=== PATIENT | female | born 1990 | race Caucasian/White ===

== ENCOUNTER 2016-03-21 12:30 | Emergency (ER) | payer MEDICAID ==
[~2016-03-21] VITALS: Ht 170.2 cm; Wt 106.8 kg
[~2016-03-21 12:30] MED LIST: FES300 PO; PREN1TAB47 PO; [UNRECOGNIZED DRUG - CODE] PO
[2016-03-21 12:33] VITALS: BP 120/70; PULSE 110; RESP 15; O2SAT 100
--- NOTE | 2016-03-21 12:53 | ED.REPORT ---
HPI-General Illness Date of Service Mar 21, 2016 ED Provider: Narendra Vásquez MD Pt is a healthy 26 year old female who is roughly 6 weeks who presents to the ED with concerns for abdominal cramping that started earlier today. She reports that she has been having increased social stressors, and believes that this is a contributing factor. 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 She reports no vaginal bleeding, or abnormal discharge. Pt reports no other medical concerns at this time. Nursing Notes Stated Complaint: ABDOMINAL PAIN Chief Complaint: & Delivery Nursing Notes Reviewed: Yes Allergies: Coded Allergies: codeine (Verified Allergy, Intermediate, Hives, 03/21/16) Scheduled CHOLECALCIFEROL-Expunged Drug, Do Not Renew! (VITAMIN D3-Expunged Drug, Do Not Renew!) 1,000 Unit Tablet 1,000 UNIT PO DAILY Ferrous Sulfate-Expunged Drug, Do Not Renew! (Feosol-Expunged Drug, Do Not Renew !) 325 Mg Tablet 325 MG PO DAILY Vit/Fe Fumarate/Fa-Expunged Drug, Do (-Expunged Drug, Do Not Renew!) 1 Tab Tablet 1 TAB PO DAILY General Time Seen by MD: 12:52 Chief Complaint Abdominal pain Hx Obtained From: Patient, Spouse Arrived By: Walk-in Sudden in Onset?: Yes Onset Occurred: Just prior to arrival Symptom Duration: Since onset Location: : Abdomen Quality: Cramping, Painful Severity: Current: Mild Severity: Maximum: Moderate Similar Sx Previous: Yes Past Medical History Past Medical History h/o Chlamyida in 2011, treated Past Surgical History none reported Family History noncontributory Social History "Very occasional" smoker-uses vape Alcohol Use: Denies alcohol use Drug Use: THC Ambulatory Status Independent Review of Systems Full Review of Systems Constitutional: Denies: Chills, Fever, Malaise, Weakness - generalized Respiratory: Denies: Non-productive cough, Shortness of breath, Wheezing GI: Reports: Abdominal pain, Denies: Constipation, Diarrhea, Nausea, Vomiting Female: Denies: Dysuria, Flank pain, Urinary frequency, Urinary urgency Musculoskeletal: Denies: Back pain Skin: Denies Diaphoresis Neurologic: Denies: Change LOC, Headache, Syncope Complete sys rev & neg: except as marked. Physical Exam Vital Signs Vital Signs Date Time Temp Pulse Resp B/P Pulse Ox O2 Delivery O2 Flow Rate FiO2 03/21/16 15:53 37.0 99 16 116/77 100 Room Air 03/21/16 12:33 36.8 110 15 120/70 100 Room Air Initial VS: Reviewed Head / Eyes: Atraumatic, Normocephalic, PERRL ENT: Mucous membranes moist, Conjunctiva normal, No scleral icterus Neck: Supple, Non-tender, Full range of motion Respiratory: Breath sounds normal, Clear to auscultation, No respiratory distress Cardiovascular: Regular rate & rhythm, Heart sounds normal, Intact distal pulses Skin: Warm, Dry, No cyanosis Neurologic: Alert, Oriented, Nonfocal Psychiatric: Mood/affect normal, Behavior normal, Normal thought content General/Constitutional: Awake, Alert, No acute distress, Well appearing, Well developed, Well nourished, Cooperative Behavior: Positive: Anxious, Tearful Abdomen: Soft, No guarding, No rebound Mild tenderness to the lower abdomen Female Genitourinary: Boom Supervisor present, External genitalia NL, No bleeding, No discharge Closed cervix Interpretation & Diagnostics Lab Results Interpretation Result Diagram: 03/21/16 1345 03/21/16 1345 Test 03/21/16 13:33 03/21/16 13:45 Hold Urine Received (Received) White Blood Count 13.4th/mm3 (3.8-10.1) Red Blood Count 5.08mil/mm3 (3.90-5.20) Hemoglobin 13.5g/dL (12.0-15.6) Hematocrit 41.5% (35.0-46.0) Mean Corpuscular Volume 81.7fL (81-100) Mean Corpuscular Hemoglobin 26.6pg (27.0-35.0) Mean Corpuscular Hemoglobin Concent 32.5% (32.0-37.0) Red Cell Distribution Width 14.1% (12.3-15.4) Platelet Count 268bil/L (150-400) Neutrophils (%) (Auto) 80.4% (40-74) Lymphocytes (%) (Auto) 15.5% (14-46) Monocytes (%) (Auto) 3.6% (4-12) Eosinophils (%) (Auto) 0.1% (0-5) Basophils (%) (Auto) 0.1% (0-3) Sodium Level 136mEq/L (134-144) Potassium Level 4.1mEq/L (3.5-5.2) Chloride Level 100mEq/L (97-108) Carbon Dioxide Level 20mmol/L (18-29) Blood Urea Nitrogen 7mg/dL (6-20) Creatinine 0.56mg/dL (0.57-1.00) Estimat Glomerular Filtration Rate 187mL/min (>59) Glucose Level 82mg/dL (60-99) Calcium Level 9.2mg/dL (8.5-10.1) Total Bilirubin 0.5mg/dL (0.0-1.2) Aspartate Amino Transf (AST/SGOT) 13U/L (0-50) Alanine Aminotransferase (ALT/SGPT) 19U/L (0-32) Alkaline Phosphatase 75U/L (25-150) Total Protein 7.6g/dL (6.4-8.4) Albumin 4.1g/dL (3.4-5.0) HCG Beta Subunit 15013uSN/mL Lab Results Interpretation: Bedside US shows a viable 8.5 week . Several mobile gallstones are also seen. US Focused OB IMPRESSION: 1. Early intrauterine with ultrasound estimated age of 8 weeks 5 days corresponding to ultrasound BRUCE of 10/26/2016. 2. Small bilateral maternal ovarian follicles. 3. Maternal cholelithiasis. Dictated by: Ernestine Mckeon MD, PhD on 03/21/2016 at 14:57 Exam Performed by: Allied health pract Exam Type: Diagnostic Re-Eval/Medical Decision Med Decision/Clinical Course The patient is a 26-year-old G 10 P1 with a history of multiple previous miscarriages currently at approximately 6-8 weeks by LMP who presents to the emergency department complaining of lower abdominal cramping. She has had no vaginal bleeding. Laboratory studies notable as below: CBC unremarkable Chemistry: Unremarkable HC Urinalysis unconvincing for UTI Pelvic examination revealed a closed cervical os with normal vaginal secretions and no bleeding. Transvaginal ultrasound was obtained as below: 1. Early intrauterine with ultrasound estimated age of 8 weeks 5 days corresponding to ultrasound BRUCE of 10/26/2016. 2. Small bilateral maternal ovarian follicles. 3. Maternal cholelithiasis. Patient's abdominal examination remained benign. There is a finding of cholelithiasis there is no evidence of cholecystitis or obstructing stone. The nature of the patient's pain and examination is not consistent with biliary colic or cholecystitis. There is no evidence of threatened miscarriage at this time in the setting of close cervical os and no vaginal bleeding. I am reassured by the findings intrauterine and detectable heart tones. Patient has an appointment with CUSTOMER SERVICE PROFESSIONAL in the coming week. She is reassured by the above findings. I feel that she is appropriate for discharge home. At this time there are no findings suggestive of an acute surgical intra- abdominal process or ectopic . Follow-up and return precautions were reviewed in detail with the patient as well as her significant other. She was discharged in stable condition. Source of Hx: Old records Time of Eval: 15:00 Re-Evaluation/Progress Note: Pt is rechecked and informed of her diagnosis and the plan to discharge her at this time. She understands and agrees, all questions are addressed. Counseled Regarding: Diagnosis, Lab results, Need for follow-up, When/why to return to ED Discharge & Departure Primary Impression: Weeks of gestation: less than 8 weeks Qualified Code: Z3A.01 - Less than 8 weeks gestation of Additional Impressions: Abdominal cramping Cholelithiasis Cholelithiasis location: other site Biliary obstruction: without biliary obstruction Qualified Code: K80.80 - Other cholelithiasis without obstruction History of miscarriage, currently Trimester: first trimester Qualified Code: O09.291 - Supervision of with other poor reproductive or obstetric history, first trimester Disposition: Home Discharge Condition All VS Reviewed: Yes Condition: Stable Patient Instructions: (ED) Additional Instructions: Thank you for seeking care at emergency room. Our primary goal today in the ED was to evaluate you for any life-threatening conditions. Your evaluation was reassuring. Ultrasound shows that you are 8.5 weeks . Please follow up with her CUSTOMER SERVICE PROFESSIONAL as previously arranged. You should return to the ED immediately if you develop worsening pain, vaginal bleeding, fevers, vomiting, cough, shortness of breath, chest pain, lightheadedness, weakness or any other concerning signs or symptoms. Thank you for letting us partake in your care today. Referrals: [facility] Scribe Attestation Portions of this note were transcribed by Suellen Arguello. I, Dr. Vásquez personally performed the history, physical exam and medical decision-making; I reviewed and confirmed the accuracy of the information in the transcribed note. Signed by: Glynn Palacio, 03/21/2016 [Time]. copies to: [facility] Narendra Vásquez MD Mar 21, 2016 12:53 ABIOLA ARGUELLO Mar 21, 2016 13:24
[2016-03-21 13:59] LABS: BASOPHILS % (AUTO) 0.1 % (0-3); EOSINOPHILS % (AUTO) 0.1 % (0-5); MONOCYTES % (AUTO) 3.6 % (4-12); Mean Corpuscular Hemoglobin 26.6 pg (27.0-35.0); Mean Corpuscular Volume 81.7 fL (81-100); NEUTROPHILS % (AUTO) 80.4 % (40-74); Platelet Count 268 bil/L (150-400)
--- NOTE | 2016-03-21 14:59 | DRSVH ---
PROCEDURE: US OB<14 WKS+OB TRANSVAG INDICATIONS: , abd pain OUTSIDE/PRIOR DATING DATA: Last menstrual period (LMP): 01/08/2016. LMP-based estimated date of delivery (BRUCE): 10/14/2016. First dating scan (date and location): 03/21/2016. Estimated date of delivery (BRUCE) from first dating scan: 10/26/2016. TECHNIQUE: Real-time scanning was performed of the fetus and maternal pelvic organs, with image documentation. Endovaginal scanning was also performed to better visualize the fetus and maternal ovaries. COMPARISON: None. FINDINGS: Embryo: Early intrauterine identified. Wainwright-rump length measures 2.1 cm corresponding to ultrasound estimated gestational age of 8 weeks 5 days. heart rate measured at 185 beats per minute. Measurement variability in dating: +/- 4 weeks by LMP, +/- 7 days by mean sac diameter (use before 6 weeks gestation if crown-rump length not able to be measured), +/- 5 days by crown-rump length (6-12 weeks gestation). Maternal organs: Small bilateral adnexal follicles are identified.. Limited images through the kidn eys demonstrate no hydronephrosis. Incidental note made of multiple mobile gallstones. IMPRESSION: 1. Early intrauterine with ultrasound estimated age of 8 weeks 5 days corresponding to [facility] BRUCE of 10/26/2016. 2. Small bilateral maternal ovarian follicles. 3. Maternal cholelithiasis. Dictated by: Ernestine Mckeon MD, PhD on 03/21/2016 at 14:57 Approved by: Ernestine Mckeon MD, PhD on 03/21/2016 at 14:57
[2016-03-21 15:53] VITALS: BP 116/77; PULSE 99; RESP 16; O2SAT 100
== END 2016-03-21 14:35 | disposition home or self-care (01) ==
LOC: SED 12:30
DX: O09.291 Supervision of pregnancy with other poor reproductive or obstetric history, first trimester (principal); K80.80 Other cholelithiasis without obstruction; R10.9 Unspecified abdominal pain; Z3A.01 Less than 8 weeks gestation of pregnancy; Z86.19 Personal history of other infectious and parasitic diseases; Z88.5 Allergy status to narcotic agent

== ENCOUNTER 2016-06-07 15:48 | Emergency (ER) | payer MEDICAID ==
[~2016-06-07] VITALS: Ht 170.2 cm; Wt 105.0 kg
[2016-06-07 15:55] VITALS: BP 126/73; PULSE 89; RESP 16; O2SAT 100
[2016-06-07] MEDS ORDERED: [UNRECOGNIZED DRUG - CODE] PO (15:58)
== END 2016-06-07 16:20 | disposition left against medical advice (07) ==
LOC: SED 15:48
DX: O88.112 Amniotic fluid embolism in pregnancy, second trimester (principal); Z53.21 Procedure and treatment not carried out due to patient leaving prior to being seen by health care provider; Z3A.19 19 weeks gestation of pregnancy

== ENCOUNTER 2016-10-19 03:24 | Inpatient (IN) | payer MEDICAID ==
[~2016-10-19] VITALS: Ht 170.2 cm; Wt 110.2 kg
[~2016-10-19 03:24] MED LIST changes: -FES300 PO; -PREN1TAB47 PO; +[UNRECOGNIZED DRUG - CODE] PO; -[UNRECOGNIZED DRUG - CODE] PO
[2016-10-20] MEDS ORDERED: Oxytocin 30 Units/500 mL LR 30 UNITS in IV Premix 1 EACH IV PRN ×3 (07:15→15:45)
[2016-10-20] MEDS ORDERED: Lactated Ringer's 1,000 ML IV PRN (07:16)
[2016-10-20] MEDS ORDERED: Hemorrhage Kit, Post Partum XX ONE ×2 (07:20→15:45)
[2016-10-20] MEDS ORDERED: Oxytocin 10 Unit/mL Inj IM PRN ×2 (07:20→15:45)
[2016-10-20] MEDS ORDERED: Sodium Chloride LOK Flush 10 mL Syringe IVFLUSH PRN (07:20)
[2016-10-20] MEDS ORDERED: Ondansetron 2 mg/mL 2 mL Inj IVPUSH PRN (07:20)
[2016-10-20] MEDS ORDERED: fentaNYL-PF 50 mCg/mL 2 mL Inj IVPUSH PRN (07:20)
[2016-10-20] MEDS ORDERED: Methylergonovine 0.2 mg/mL Inj IM PRN ×2 (07:20→15:45)
[2016-10-20] MEDS ORDERED: Carboprost 250 mCg/mL Inj IM PRN ×2 (07:20→15:45)
[2016-10-20 08:15] LABS: Mean Corpuscular Hemoglobin 25.1 pg (27.0-35.0)
[2016-10-20] MEDS: Lactated Ringer's 1,000 ML IV SCH ×7 (08:26→23:42)
[2016-10-20] MEDS ORDERED: fentaNYL 2 mCg/mL-Bupiv 0.125% 100 ML EPIDURAL SCH (11:15)
[2016-10-20] MEDS ORDERED: EPHEDrine Sulfate 50 mg/mL Inj IVPUSH PRN (11:15)
[2016-10-20] MEDS ORDERED: Lactated Ringer's 500 ML IV ONE (11:15)
[2016-10-20] MEDS ORDERED: Atropine 1 mg/10 mL (Code) Syringe IVPUSH PRN (11:15)
--- NOTE | 2016-10-20 11:58 | PCM.HPANE ---
Patient Data Date of Service: Oct 20, 2016 (1111) Surgeon Admitting Provider:Luis E Mcmahon MD Attending Provider:Luis E Mcmahon MD Primary Care Physician:Luis E Mcmahon MD Other Provider:Grayson Goddard Anesthesia Reason for Visit Induction INDUCTION Ht/WT & BMI Height (Feet): 5 Height (Inches): 7 Body Mass Index Allergies Coded Allergies: codeine (Verified Allergy, Intermediate, Hives, 06/07/16) Past Anesthesia History Anesthesia History: Denies:: Anesthesia Reactions Additional Information: troubles with placement of epidural with first child Diabetes History Hx Diabetes?: No MRSA MRSA: No Medications Hypertension Medication: No Home Meds Incl Beta Randal: No Reported Medications Pediatric Multivit Comb #25/FA (Child's Chewable Multivit Tab)300 Mcg Tab.chew2 Tab PO DAILY 06/07/16 History History of ENT Problems?: No HEENT History: Denies:: Abnormal Airway Denture Type: None Teeth Condition: Within Normal Limits Hx of Heart Problems?: No Cardiovascular History: Denies:: Congestive Heart Failure Hypertension Hx of Respiratory Problem?: No Respiratory History: Denies:: Tuberculosis Hx Neurologic Problems?: No Hx of GI Problems?: No Hx of Problems?: No Female Hx: Positive for:: Currently Hx Musculoskeletal Problems?: No Hx Surgeries?: No Hx Diabetes: No Hx Alcohol Use: NoHx Substance Use: No Smoking Status: Never Smoker Have You Smoked inLast 12 mo: Yes Stop/Bang NICHO Risk Assessment: Low Risk, <3 Yes Risk Assessment Category Category 1A: Patient has history of documented sleep apnea, and HAS NOT received any narcotic, sedative or anesthesia administration during this stay. Category 1B: Patient has history of documented sleep apnea, and HAS received any narcotic , sedative or anesthesia administration during this stay Category 2: Patient has SUSPECTED Obstructive Sleep Apnea, and HAS received any narcotic , sedative or anesthesia administration during this stay. Category 3: Patient has SUSPECTED Obstructive Sleep Apnea and HAS NOT received narcotic, sedative or anesthesia administration during this stay. Category 4: Outpatient in Procedural Areas with known sleep apnea or who screen positive for High Risk via the STOP/BANG questionnaire. Exam Exam General Appearance: Alert, Oriented X3 HEENT/AIRWAY: MP 2 Lungs: Clear to Auscultation Heart: Exam Unremarkable Meds/Labs/Diagnostics Admission Meds Current Medications Lactated Ringer's (Lr) 1,000 ml @ 125 mls/hr Q8H IV Last administered on t 11:16; Start 10/20/16 at 07:12 Labs Test 10/20/16 07:45 White Blood Count 11.7th/mm3 (3.8-10.1) Red Blood Count 4.55mil/mm3 (3.90-5.20) Hemoglobin 11.4g/dL (12.0-15.6) Hematocrit 35.5% (35.0-46.0) Mean Corpuscular Volume 78.0fL (81-100) Mean Corpuscular Hemoglobin 25.1pg (27.0-35.0) Mean Corpuscular Hemoglobin Concent 32.1% (32.0-37.0) Red Cell Distribution Width 15.7% (12.3-15.4) Platelet Count 299bil/L (150-400) Plan Impression Patient chart reviewed, patient interviewed and anesthestic plan with risks, benefits, and alternatives discussed, and informed consent obtained. NPO per Anesth. Guidelines: Yes ASA Physical Status: ASA2 Mod Systemic Disease Anesthetic Plan: Epidural Bene/Risks/Altern/Consents: Yes HP Complete Prior to Induction: Yes Israel Tellez MD Oct 20, 2016 11:58
--- NOTE | 2016-10-20 15:20 | PCM.ANEP1 ---
Post Anesthesia PACU Phase 1 Assessment Anesthetic Administered: Epidural Level of Alertness: Awake, talking Pain: No Nausea or Vomiting: No CV Function & Hydration Stable: Yes Airway Device: none Lungs: Clear to Auscultation Dermatome Level: Full Sensation Summary good epidural PACU Phase 2 Assessment Complications: No Follow up Care: No Patient Instructions Provided: N/A Israel Tellez MD Oct 20, 2016 15:20
[2016-10-20] MEDS ORDERED: Benzocaine (Dermoplast) 20% 60 Gm Spray TOPICAL PRN (15:45)
[2016-10-20] MEDS ORDERED: Influenza (Adult) Vaccine 0.5 mL Syringe IM ONE (15:45)
[2016-10-20] MEDS ORDERED: Measles-Mumps-Rubella Vaccine 0.5 mL Inj SUBQ ONE (15:45)
[2016-10-20] MEDS ORDERED: LANOlin HPA 7 Gm Ointment TOPICAL PRN (15:45)
[2016-10-20] MEDS ORDERED: HYDROcodone-APAP 5-325 mg Tablet PO PRN (15:45)
[2016-10-20] MEDS ORDERED: Witch Hazel-Glycerin Pads TOPICAL PRN (15:45)
[2016-10-20] MEDS ORDERED: TdaP Vaccine 0.5 mL Inj IM ONE (15:45)
--- NOTE | 2016-10-21 00:05 | OP ---
[address] [address] OPERATIVE REPORT PATIENT: ALTAGRACIA ALTMAN : 1990 MR#: [id number] ADMIT: 10/20/2016 JOB ID: [id number] 10/20/2016 [facility] NOTE: The patient was admitted to [facility] this morning, i.e. at 39-1/7 weeks of gestation, to have second child. The patient was recently found to have polyhydramnios and labor induction thus was offered at 39 weeks of gestation with favorable cervix, knowing increased risk of hydramnios, including prolapse forward and placental abruption if rupture of membranes occurred. This morning, Pitocin therapy was initiated and gradually decreased carefully, and artificial rupture of membranes was not possible to the high station of head at -3 or higher. Thereafter, in less than 1 hour, spontaneous rupture of membranes did occur and copious amounts of clear amniotic fluid was noted. Uterine contractions then became more intense, and cervical dilatation progress occurred until ultimately the patient was in active phase of labor. She requested and received intravenous fentanyl, and then epidural was provided. Cervix further progressed up to 10 cm dilatation and second stage of labor was very short. Note that heart tracing demonstrated some intermittent variable decelerations and other heart rate drops, yet also with intermixed good heart rate reactivity and variability, and no ominous pattern. Once completely dilated, head then descended very rapidly with short pushing until was achieved. Head then delivered, followed directly by the shoulders, body and extremities. Baby was active, crying and vigorous, and handed to mother for bonding and further nurse management. After one minute of delay, umbilical cord was clamped and cut and cord blood was obtained for routine studies. Placenta with membranes were then spontaneously expelled, intact. Uterus contracted well with massage plus intravenous Pitocin infusion. Blood loss was in the 100 cc range. Betadine solution was used to cleanse the vulvovaginal region. No lacerations were noted. Instrument, needle and sponge counts were then found all to be correct. Uterine bleeding was minimal. Procedures were complete. It certainly is anticipated that mother and baby will do very well during the timeframe. MTDD
[2016-10-21] MEDS ORDERED: TdaP Vaccine 0.5 mL Inj IM ONE (01:45)
[2016-10-21 07:00] LABS: Mean Corpuscular Hemoglobin 24.6 pg (27.0-35.0); Mean Corpuscular Volume 79.8 fL (81-100)
--- NOTE | 2016-10-21 16:39 | PCM.DIOB ---
Obstetrical Disch Instruction Dates of Hospitalization Date of Hospital Admission Oct 20, 2016 at 06:45 Providers Admitting Physician: Luis E Mcmahon MD Primary Care Physician: Luis E Mcmahon MD Attending Physician: Luis E Mcmahon MD Discharge Diagnosis Problems: (1) Status: Acute ICD Code: Z33.1 (2) Polyhydramnios Status: Acute ICD Code: O40.9XX0 Diet Discharge Diet: No restrictions Activity Discharge Activity-General: Pelvic Rest for 6 weeks Dressing and Incisional Care Hygiene: May shower, Perineal care, Sitz bath, Dermoplast spray, Witch Shani pads, Ice Follow Up Plan Follow-up appointment: Weeks (Followup in 6 weeks for checkup.) Call your provider for: Fever or Chills, Shortness of breath, Heavy vaginal bleeding, Red painful breasts Luis E Mcmahon MD Oct 21, 2016 16:39
[2016-10-21] MEDS ORDERED: IBUP-1827 PO (16:41)
--- NOTE | 2016-10-23 11:01 | HP ---
[address] [address] HISTORY AND PHYSICAL PATIENT: ALTAGRACIA ALTMAN : 1990 MR#: [id number] ADMIT: 10/20/2016 JOB ID: [id number] [facility] NOTE: DATE OF SERVICE: 10/20/2016 TIME OF NOTE: 0800 hours HISTORY: This patient is a 26-year-old, reportedly AB8, single woman followed prenatally at [facility]. Due date is October 26, 2016, placing the patient at 39-1/7 weeks of gestation on admission. She has recently been found to have polyhydramnios of uncertain etiology, without any known anomaly or genetic abnormality, without diabetes, and so forth. In light of polyhydramnios diagnosis and fortunate to have favorable cervix, I have recommended labor induction in an effort to reduce the risk of cord prolapse or placental abruption if spontaneous rupture of membranes was to occur outside the hospital, thus is more risk for fetus and potentially mother, and also in light of increased loss risk that is known simply in the setting of polyhydramnios. Note that otherwise, the patient is obese although she has only gained 11 pounds during the , although up by 20 pounds from after 14 weeks due to noted weight loss early on. She was found to have a fundal height large, most certainly contribute to by increased abdominal wall thickness yet also by the polyhydramnios that has been described in the prior paragraph. Interestingly, patient was thought to have oligohydramnios at one point in the second trimester, yet this amniotic fluid normalized as demonstrated by [facility] sonography before ultimately shifting the polyhydramnios as noted late during this . The patient experienced early pyelonephritis/cystitis in , she has known cholelithiasis although this was not a major problem during this , she carries a history of depression although she is managed okay recently, she had a history of smoking although stopping a few years ago, and she had an abnormal 1 hour glucose challenge test, although a normal 3 hour glucose tolerance test past. She declined Tdap. In summary, the patient recently found to have polyhydramnios at term and was brought in for labor induction in the morning of October 20, 2016. PHYSICAL EXAMINATION: On admission, last height, weight and blood pressure in the office was 67 inches, 244 pounds, and 124/80, respectively. Neck: No thyromegaly. Lungs: Clear to auscultation and percussion. Heart: Regular in rate and rhythm. Abdomen: Fundal height 41 cm. Positive heartbeat. Vertex presentation. Pelvic examination: Initial cervical exam at 3 cm dilatation, mostly effaced, soft, vertex presentation. DIAGNOSTIC DATA: Admission hemoglobin 11.4 with platelets 299. IMPRESSION: 1. A 39-1/7 weeks . 2. Prior vaginal delivery, also reported eight miscarriages preceding live . 3. Recently-discovered polyhydramnios of unknown etiology. 4. Increased weight, note net weight gain during of 11 pounds only. 5. Early pyelonephritis/cystitis in , treated. 6. Known cholelithiasis. 7. Depression history, no antidepressant medications at this time. 8. History of smoking, stopped in 2008. 9. Declined Tdap. 10. Negative GBS, rubella immune, Rh positive. 11. Concussion history (2012) associated with a fall. 12. Chlamydia and bacterial vaginosis history, both in 2012, treated. 13. CODEINE allergy -- hives. 14. Family history of hypertension (parents), rectal cancer (great-aunt), potential bone cancer (great-grandmother). PLAN: The patient has been admitted to on October 20, 2016, at term with favorable cervix, for labor induction in the setting of polyhydramnios of uncertain etiology.
--- NOTE | 2016-10-23 11:03 | DIS ---
[address] [address] DISCHARGE SUMMARY PATIENT: ALTAGRACIA ALTMAN : 1990 MR#: [id number] ADMIT: 10/20/2016 JOB ID: [id number] DIS: 10/21/2016 DISCHARGE DIAGNOSES: 1. Term , delivered. 2. Polyhydramnios of uncertain etiology. PROCEDURES PERFORMED DURING HOSPITALIZATION: 1. Labor induction. 2. Epidural anesthesia. 3. Vaginal delivery. HOSPITAL COURSE: Patient admitted to [facility] on October 20, 2016, on which day she underwent procedures as described. During the timeframe, patient did well, with stable vitals, afebrile, with reasonable bleeding and pain management, ambulating and voiding, without leg pain or shortness of breath, and handling baby well. She thus qualified for discharge on the first day, i.e., on October 21, 2016. DISCHARGE PROGRAM: Patient will call p.r.n., otherwise she will follow up at six weeks for checkup. She will observe pelvic rest. DISCHARGE MEDICATIONS: Include ibuprofen 600 mg, prescription written. She also will continue to use vitamins while nursing, and patient has a supply at home of pediatric multivitamin combination of which she takes two daily, this being the product that she has been able to tolerate.
== END 2016-10-21 17:50 | disposition home or self-care (01) | DRG 560 ==
LOC: FBC 10-20 06:45
PROVIDERS: ADMIT Obstetrics & Gynecology; ATTEND Obstetrics & Gynecology
PROC: 10E0XZZ Delivery of Products of Conception, External Approach (ICD-10-PCS; principal; 2016-10-20)
PROC: 3E033VJ Introduction of Other Hormone into Peripheral Vein, Percutaneous Approach (ICD-10-PCS; 2016-10-20)
DX: O40.3XX0 Polyhydramnios, third trimester, not applicable or unspecified (principal); O76 Abnormality in fetal heart rate and rhythm complicating labor and delivery; Z3A.39 39 weeks gestation of pregnancy; Z37.0 Single live birth